=== PATIENT | female | born 1990 | race Caucasian/White ===

== ENCOUNTER 2023-08-14 08:17 | Emergency (ER) | payer OTHER, SELFPAY ==
[2023-08-14 08:32] VITALS: BP 143/93; PULSE 772; RESP 16; TEMP 36.6; O2SAT 100
--- NOTE | 2023-08-14 08:51 | ED.SKABFB ---
HPI - Skin/Abscess/Foreign Bdy General Chief complaint: Skin/Abscess/Foreign Body Stated complaint: rash on neck Time Seen by Provider: 08/14/23 08:44 Source: patient, RN notes reviewed and old records reviewed Mode of arrival: ambulatory Limitations: no limitations History of Present Illness HPI narrative: 32year old female who presents to [facility] with complaints of rash right side of neck which itches and wolff for the past 2 days. Patient does report that she has been working in yard, thought it was a bug bite or exposed to something out side. She has not applied any OTC ointment or taken any Benadryl for her symptoms. MD complaint: rash Onset (ago): day(s) (2) Severity scale (1-10): 3 Treatments prior to arrival: none Related Data Home Medications Medication Instructions Recorded Confirmed atenolol 25 mg tablet mg 08/14/23 lisinopril 20 mg tablet mg 08/14/23 Allergies Allergy/AdvReac Type Severity Reaction Status Date / Time No Known Allergies Allergy Unverified 12/09/16 19:55 Review of Systems Review of Systems: CONSTITUTIONAL: Denies fever, chills, or sweats. CARDIOVASCULAR: Denies chest pain, palpitations, or edema. RESPIRATORY: Denies cough or dyspnea. SKIN: Reports rash to right side of neck MUSCULOSKELETAL: Denies joint pain or myalgia. NEUROLOGIC: Denies headache, numbness, or weakness. All systems reviewed & are unremarkable except as noted in HPI and below PMFSH Past Medical History Medical History (Updated 08/15/23 @ 08:36 by Juliette Trinidad NP) Hypertension Surgical History Surgical History (Updated 08/15/23 @ 08:31 by Juliette Trinidad NP) H/O Spinal surgery Previous section x3 Social History Social History (Updated 08/15/23 @ 08:33 by Juliette Trinidad NP) Gender identity (if verbalized by the patient): Female Comments At time of signature, agree with nursing past medical, surgical, social and family history. There is no relevant family history pertinent to the presenting complaint Exam Narrative: GENERAL: Well-appearing, well-nourished, and in no acute distress. HEAD: Normocephalic, atraumatic. EYES: PERRLA, conjunctivae clear, and EOMI. ENT: Mucous membranes moist. Oropharynx without edema, erythema or lesions. NECK: Supple. No lymphadenopathy CHEST: Clear to auscultation. No respiratory distress.SAO2 100%on room air HEART: Regular rate and rhythm. SKIN: Warm, dry.? Patch of red raised rash to the right side of neck no drainage noted is itchy NEURO:? Alert and oriented x3. PSYCH: Normal mood and affect Course Course Emergency Course: Patient is aware of diagnosis, understands and agrees to treatment plan.? Anticipatory guidance given.? Patient agrees to follow-up as directed and is aware of reasons to seek care at the emergency department. Portions of this record may have been created with voice recognition software Level of Care: Express Care Visit Vital Signs Vital signs: Vital Signs Temperature 36.6 C 08/14/23 08:32 Pulse Rate 772 H 08/14/23 08:32 Respiratory Rate 16 08/14/23 08:32 Blood Pressure 143/93 H 08/14/23 08:32 Pulse Oximetry 100 08/14/23 08:32 Oxygen Delivery Room Air 08/14/23 08:32 Temperature 36.6 C 08/14/23 08:32 Pulse Rate 772 H 08/14/23 08:32 Respiratory Rate 16 08/14/23 08:32 Blood Pressure 143/93 H 08/14/23 08:32 Pulse Oximetry 100 08/14/23 08:32 Oxygen Delivery Room Air 08/14/23 08:32 Reviewed MDM - Skin/Abscess/Foreign Bdy MDM Narrative Medical decision making narrative: Does not appear at this time to be erythema multiforme, bullous, SJS, TEN; no evidence at this time to suggest RMSF, endocarditis or Lyme disease; patient looks well, nontoxic and is tolerating oral intake; no neurologic signs or symptoms; no headache, photophobia or neck pain; afebrile; appropriate for initial outpatient treatment; discussed the importance of follow-up, radha
== END 2023-08-14 09:06 | disposition home or self-care (01) ==
PROVIDERS: Emergency Provider Registered Nurse; PCP Nurse Practitioner Family
DX: L25.9 Unspecified contact dermatitis, unspecified cause (principal); I10 Essential (primary) hypertension
CPT/HCPCS: 99203; G0463